=== PATIENT | female | born 1935 | race Caucasian/White ===

== ENCOUNTER → 2017-01-14 | Outpatient (CLI) | payer MEDICARE ==
[~2017-01-14] MED LIST: AMLO2.5T PO; ASPI-496 PO; ATEN50TA41 PO; CALC-55 PO; CHOL-29 PO; IRBE150T25 PO; LEVO25TA4 PO; MULT-257 PO; OMEG-14 PO; RALO60TA PO; VIT1CAPS10 PO; xarelto
== END | disposition home or self-care (01) ==
LOC: CFH 10:51
PROVIDERS: ATTEND Nurse Practitioner Family
DX: J06.9 Acute upper respiratory infection, unspecified (principal); R91.8 Other nonspecific abnormal finding of lung field
CPT/HCPCS: 71020

== ENCOUNTER → 2018-03-05 | Outpatient (CLI) | payer MEDICARE | END | disposition home or self-care (01) | LOC: CFH 12:02 | PROVIDERS: ATTEND Nurse Practitioner Family | DX: M19.031 Primary osteoarthritis, right wrist (principal); M85.841 Other specified disorders of bone density and structure, right hand ==

== ENCOUNTER 2018-05-03 20:17 | Emergency (ER) | payer MEDICARE ==
[~2018-05-03] VITALS: Ht 162.6 cm; Wt 52.0 kg
[~2018-05-03 20:17] MED LIST changes: -AMLO2.5T PO; +AMLO2.5T3 PO
[2018-05-03] MEDS ORDERED: SOTALOL 80MG TABLET PO ONE (21:00)
[2018-05-03 21:06] LABS: BASOPHILS # (AUTO) 0.03 x10^3/uL (0-0.1); BASOPHILS % (AUTO) 0 % (0-1); EOSINOPHILS # (AUTO) 0.08 x10^3/uL (0-0.4); EOSINOPHILS % (AUTO) 1 % (1-7); LYMPHOCYTES # (AUTO) 1.49 x10^3/uL (1-3.4); LYMPHOCYTES % (AUTO) 20 % (22-44); MD NO; MEAN CORPUSCULAR HEMOGLOBIN 31.4 pg (27.0-34.8); MEAN CORPUSCULAR HGB CONC 33.4 g/dL (32.4-35.8); MEAN CORPUSCULAR VOLUME 94.1 fL (80-100); MEAN PLATELET VOLUME 9.4 fL (7.4-10.4); MONOCYTES # (AUTO) 0.58 x10^3/uL (0.2-0.8); MONOCYTES % (AUTO) 8 % (2-9); NEUTROPHILS # (AUTO) 5.25 x10^3/uL (1.8-6.8); NEUTROPHILS % (AUTO) 71 % (42-75); PLATELET COUNT 218 x10^3/uL (130-400); RED BLOOD COUNT 4.52 x10^6/uL (3.82-5.3); RED CELL DISTRIBUTION WIDTH 14.8 % (9.6-15.2)
[2018-05-03 21:18] LABS: ALANINE AMINOTRANSFERASE 84 U/L (12-78); ALBUMIN 3.6 g/dL (3.4-5.0); ANION GAP 7 mmol/L (5-15); CHLORIDE 109 mmol/L (98-107); CREATININE 0.82 mg/dL (0.55-1.02)
[2018-05-03 21:22] LABS: ALKALINE PHOSPHATASE 113 U/L (45-117); BILIRUBIN,TOTAL 0.4 mg/dL (0.2-1.0); TOTAL PROTEIN 7.4 g/dL (6.4-8.2); TROPONIN I 0.025 ng/mL (0.000-0.045)
[2018-05-03 22:17] VITALS: BP 154/70
== END 2018-05-03 22:44 | disposition home or self-care (01) ==
LOC: ED 22:06
DX: I48.0 Paroxysmal atrial fibrillation (principal); I10 Essential (primary) hypertension
CPT/HCPCS: 36415; 71045; 80053; 83880; 84484; 85025; 93005; 99285

== ENCOUNTER → 2018-11-22 | Outpatient (CLI) | payer MEDICARE ==
[~2018-11-22] MED LIST changes: -AMLO2.5T3 PO; +AMLO2.5T5 PO; +OCUVITE SOFTGE1 EACH PO; +REGADENOSON 0.4 MG/5 ML SYRINGE ONE; -VIT1CAPS10 PO
== END | disposition home or self-care (01) ==
LOC: CFH 11:55
PROVIDERS: ATTEND Internal Medicine Cardiovascular Disease
DX: I08.8 Other rheumatic multiple valve diseases (principal); I48.91 Unspecified atrial fibrillation
CPT/HCPCS: 78452; 93017; 93306; A9502; J2785

== ENCOUNTER 2019-08-05 08:08 | Outpatient (CLI) | payer MEDICARE ==
[~2019-08-05 08:08] MED LIST changes: +DILT120C64 PO; +DILT240C61 PO; +HYDR-3341 PO; -IRBE150T25 PO; +IRBE150T9 PO; -REGADENOSON 0.4 MG/5 ML SYRINGE ONE; +SOTA120T26 PO; +TELM20TA PO
== END 2019-08-05 23:59 | disposition home or self-care (01) ==
LOC: CFH 08:08
PROVIDERS: ATTEND Internal Medicine Cardiovascular Disease
DX: Z13.6 Encounter for screening for cardiovascular disorders (principal); E78.00 Pure hypercholesterolemia, unspecified; J90 Pleural effusion, not elsewhere classified; J98.11 Atelectasis
CPT/HCPCS: 75571

== ENCOUNTER 2019-09-02 10:05 | Outpatient (CLI) | payer MEDICARE ==
[~2019-09-02 10:05] MED LIST changes: +ALPR0.5T PO
[2019-09-02] MEDS ORDERED: RIVA20TA PO (14:10)
[2019-09-02] MEDS ORDERED: HYDR-3341 PO (14:10)
[2019-09-02] MEDS ORDERED: LEVO25TA4 PO (14:10)
[2019-09-02] MEDS ORDERED: DILT240C81 PO (14:10)
[2019-09-02] MEDS ORDERED: MULT-717 PO (14:10)
[2019-09-02] MEDS ORDERED: DILT30TA33 PO (14:13)
[2019-09-02] MEDS ORDERED: DENO60DI INJ (14:13)
[2019-09-02] MEDS ORDERED: FURO20TA3 PO (14:13)
[2019-09-02] MEDS ORDERED: Vitamin D3 PO (14:17)
== END 2019-09-02 23:59 | disposition home or self-care (01) ==
LOC: STAR 10:05
PROVIDERS: ATTEND Internal Medicine Geriatric Medicine
DX: Z02.9 Encounter for administrative examinations, unspecified (principal)

== ENCOUNTER 2019-09-13 07:56 | Day surgery (SDC) | payer MEDICARE ==
[~2019-09-13] VITALS: Ht 162.6 cm; Wt 48.2 kg
[~2019-09-13 07:56] MED LIST changes: +DENO60DI INJ; +DILT240C81 PO; +DILT30TA33 PO; +FURO20TA3 PO; +MULT-717 PO; +RIVA20TA PO; +Vitamin D3 PO
[2019-09-13 08:23] VITALS: BP 170/96
[2019-09-13] MEDS ORDERED: LACTATED RINGERS 1,000 ML IV STA (08:43)
[2019-09-13] MEDS ORDERED: LACTATED RINGERS 1,000 ML IV SCH (09:00)
[2019-09-13] MEDS ORDERED: PROPOFOL 10 MG/ML, 20ML ONE (10:05)
[2019-11-15] MEDS ORDERED: RALO60TA PO (09:11)
[2019-11-15] MEDS ORDERED: METO25TA91 PO (09:11)
[2019-11-15] MEDS ORDERED: POTA20TA6 PO (09:11)
[2019-11-15] MEDS ORDERED: AMIO200T42 PO ×2 (09:11→12:32)
[2019-11-15] MEDS ORDERED: FURO20TA3 PO (09:24)
== END 2019-09-13 12:15 | disposition home or self-care (01) ==
LOC: OUT 07:56
PROVIDERS: ATTEND Internal Medicine Geriatric Medicine
DX: K85.90 Acute pancreatitis without necrosis or infection, unspecified (principal); I48.91 Unspecified atrial fibrillation; I11.0 Hypertensive heart disease with heart failure; I50.32 Chronic diastolic (congestive) heart failure; D68.69 Other thrombophilia; E89.0 Postprocedural hypothyroidism; F41.9 Anxiety disorder, unspecified; Z79.01 Long term (current) use of anticoagulants; Z79.890 Hormone replacement therapy; Z79.899 Other long term (current) drug therapy; Z88.8 Allergy status to other drugs, medicaments and biological substances; Z91.018 Allergy to other foods; Z90.49 Acquired absence of other specified parts of digestive tract; Z98.890 Other specified postprocedural states; Z80.1 Family history of malignant neoplasm of trachea, bronchus and lung; Z82.49 Family history of ischemic heart disease and other diseases of the circulatory system
CPT/HCPCS: 43259; J2704; J7120

== ENCOUNTER 2019-09-15 12:24 | Outpatient (CLI) | payer MEDICARE ==
[2019-09-15] MEDS ORDERED: LIDOCAINE 1%, 10ML ONE (13:40)
== END 2019-09-15 23:59 | disposition home or self-care (01) ==
LOC: RAD 12:24
PROVIDERS: ATTEND Nurse Practitioner Family
DX: J90 Pleural effusion, not elsewhere classified (principal)
CPT/HCPCS: 32555; 74176

== ENCOUNTER 2019-09-27 05:26 | Day surgery (SDC) | payer MEDICARE ==
[~2019-09-27] VITALS: Ht 162.6 cm; Wt 48.0 kg
[2019-09-27] MEDS ORDERED: LACTATED RINGERS 1,000 ML IV SCH (06:05)
[2019-09-27 06:24] VITALS: BP 167/90
[2019-09-27] MEDS ORDERED: MIDAZOLAM 1 MG/ML, 2ML ONE (08:02)
[2019-09-27] MEDS ORDERED: FENTANYL PF 250 MCG/5ML ONE (08:02)
[2019-09-27] MEDS ORDERED: ONDANSETRON 2MG/ML, 2ML ONE (09:02)
[2019-09-27] MEDS ORDERED: PROPOFOL 10 MG/ML, 20ML ONE (09:02)
[2019-09-27] MEDS ORDERED: SUCCINYLCHOLINE 20 MG/ML, 10ML ONE (09:02)
[2019-09-27] MEDS ORDERED: AMPICILLIN/SULBACTAM 3 GM in SODIUM CHLORIDE 0.9% 100 ML IV ONE (10:00)
[2019-09-27] MEDS ORDERED: ONDANSETRON 2MG/ML, 2ML IVPush PRN (10:30)
[2019-09-27] MEDS ORDERED: hydrALAzine 20 MG/ML, 1ML IV PRN (10:30)
[2019-09-27] MEDS ORDERED: LABETALOL 5MG/ML, 20ML IV PRN (10:30)
[2019-09-27] MEDS ORDERED: METOCLOPRAMIDE 5 MG/ML, 2ML IV PRN (10:30)
[2019-09-27] MEDS ORDERED: ALBUTEROL SULFATE 2.5 MG/3 ML NPPB PRN (10:30)
[2019-09-27] MEDS ORDERED: DIAZEPAM 5 MG/ML, 2ML IV PRN ×2 (10:30)
[2019-09-27] MEDS ORDERED: HYDROmorphone 1 MG/ML, 1ML INJ IV PRN (10:30)
[2019-09-27] MEDS ORDERED: KETOROLAC 30 MG/1 ML IV PRN (10:30)
[2019-09-27] MEDS ORDERED: OXYcodone 5 MG/5 ML ORAL.SOL UDC PO PRN (10:30)
[2019-09-27] MEDS ORDERED: PROMETHAZINE 25 MG/ML, 1ML IV PRN (10:30)
[2019-09-27] MEDS ORDERED: FENTANYL PF 100 MCG/2ML IV PRN (10:30)
[2019-09-27] MEDS ORDERED: MEPERIDINE/PF 25MG/0.5ML IVPush PRN (10:30)
[2019-11-15] MEDS ORDERED: METO25TA91 PO (09:11)
[2019-11-15] MEDS ORDERED: AMIO200T42 PO ×2 (09:11→12:32)
[2019-11-15] MEDS ORDERED: RALO60TA PO (09:11)
[2019-11-15] MEDS ORDERED: POTA20TA6 PO (09:11)
[2019-11-15] MEDS ORDERED: FURO20TA3 PO (09:24)
== END 2019-09-27 11:35 | disposition home or self-care (01) ==
LOC: OUT 05:26
PROVIDERS: ATTEND Internal Medicine Geriatric Medicine
DX: K85.90 Acute pancreatitis without necrosis or infection, unspecified (principal); K86.89 Other specified diseases of pancreas; I48.0 Paroxysmal atrial fibrillation; I11.0 Hypertensive heart disease with heart failure; I50.33 Acute on chronic diastolic (congestive) heart failure; I34.1 Nonrheumatic mitral (valve) prolapse; E78.00 Pure hypercholesterolemia, unspecified; E03.9 Hypothyroidism, unspecified; M19.90 Unspecified osteoarthritis, unspecified site; E55.9 Vitamin D deficiency, unspecified; Z79.01 Long term (current) use of anticoagulants; Z79.890 Hormone replacement therapy; Z79.899 Other long term (current) drug therapy
CPT/HCPCS: 43242; 88172; 88173; 88177; 88307; J0330; J2405; J2704; J7120; J2250; J3010

== ENCOUNTER 2019-09-29 14:16 | Emergency (ER) | payer MEDICARE ==
[~2019-09-29] VITALS: Ht 162.6 cm; Wt 48.8 kg
--- NOTE | 2019-09-29 15:11 | NUR ---
FALSEWORK BUILDER: PT TO ROOM FROM LOBBY.
--- NOTE | 2019-09-29 15:16 | NUR ---
PT CAME IN CO OF ABD PAIN. SAYS "I HAD AN ENDOSCOPY ON THURSDAY AND EVER SINCE MY ABD HAS BEEN HURTING. TODAY HAS BEEN THE WORSE. ITS A SHARP PAIN. I CALLED THE GI DOC AND HE TOLD ME TO COME." PT DENIES BLACK STOOL. DENIES VOMITTING. PT TAKES XARELTO FOR AFIB. AOX4. IS BEDSIDE
[2019-09-29] MEDS ORDERED: SODIUM CHLORIDE 0.9% 1,000 ML IV ONE (15:32)
[2019-09-29] MEDS ORDERED: SODIUM CHLORIDE FLUSH 10ML SYR IVF ONE (16:00)
[2019-09-29 16:05] LABS: ANION GAP 8 mmol/L (5-15); CHLORIDE 105 mmol/L (98-107); CREATININE 0.86 mg/dL (0.55-1.02)
[2019-09-29 16:06] LABS: ALANINE AMINOTRANSFERASE 27 U/L (12-78); ALBUMIN 3.6 g/dL (3.4-5.0)
--- NOTE | 2019-09-29 16:06 | NUR ---
PT RESTING IN [facility]. IV FLUIDS INFUSING. CONNECTED TO KITCHEN CLEANER. NO NEEDS AT THIS TIME
[2019-09-29 16:08] LABS: ALKALINE PHOSPHATASE 70 U/L (45-117); BILIRUBIN,TOTAL 0.4 mg/dL (0.2-1.0); TOTAL PROTEIN 7.7 g/dL (6.4-8.2)
[2019-09-29 16:40] LABS: BASOPHILS % (AUTO) 0 % (0-1); EOSINOPHILS # (AUTO) 0.13 x10^3/uL (0-0.4); EOSINOPHILS % (AUTO) 1 % (1-7); LYMPHOCYTES # (AUTO) 1.21 x10^3/uL (1-3.4); LYMPHOCYTES % (AUTO) 12 % (22-44); MD NO; MEAN CORPUSCULAR HEMOGLOBIN 31.6 pg (27.0-34.8); MEAN CORPUSCULAR HGB CONC 33.1 g/dL (32.4-35.8); MEAN CORPUSCULAR VOLUME 95.4 fL (80-100); MEAN PLATELET VOLUME 8.9 fL (7.4-10.4); MONOCYTES # (AUTO) 0.98 x10^3/uL (0.2-0.8); MONOCYTES % (AUTO) 9 % (2-9); NEUTROPHILS # (AUTO) 8.13 x10^3/uL (1.8-6.8); NEUTROPHILS % (AUTO) 78 % (42-75); PLATELET COUNT 238 x10^3/uL (130-400); RED BLOOD COUNT 4.16 x10^6/uL (3.82-5.3); RED CELL DISTRIBUTION WIDTH 14.5 % (9.6-15.2)
[2019-09-29] MEDS ORDERED: OMNIPAQUE 350 MG/ML, 100ML BOTTLE ONE (16:49)
--- NOTE | 2019-09-29 16:49 | NUR ---
BREAK RN: PT BACK FROM CT. REPORT GIVEN TO FUNMI POZO
[2019-09-29 17:33] VITALS: BP 133/80
--- NOTE | 2019-09-29 17:34 | NUR ---
PT RESTING IN [facility]. NAD. VSS. BLANKET PROVIDED.
== END 2019-09-29 18:32 | disposition home or self-care (01) ==
LOC: ED 15:16
DX: K85.90 Acute pancreatitis without necrosis or infection, unspecified (principal); R10.13 Epigastric pain; I11.0 Hypertensive heart disease with heart failure; I50.9 Heart failure, unspecified; I48.91 Unspecified atrial fibrillation; R94.31 Abnormal electrocardiogram [ECG] [EKG]
CPT/HCPCS: 36415; 71045; 74177; 80053; 83690; 85025; 93005; 99285; J7030; Q9967

== ENCOUNTER 2019-11-30 07:49 | Inpatient (IN) | payer MEDICARE ==
[~2019-11-30] VITALS: Ht 162.6 cm; Wt 45.8 kg
[~2019-11-30 07:49] MED LIST changes: +AMIO200T42 PO; +METO25TA91 PO; +POTA20TA6 PO
[2019-11-30] MEDS ORDERED: AMIO200T42 PO (08:06)
--- NOTE | 2019-11-30 08:28 | NUR ---
Note undone in EDM - 11/30/19 at 0833 by BETSY Pt BIB [facility] for SOB and chest tightness. Pt is slightly diaphoretic, changed into gown, call light on lap, P/W/D, partial sentences with breaths in between. Placed on monitor, On 2L NC. Pt resting in [facility], denies additional needs at this time. WCTM. Waiting for provider EVAL and POC.
--- NOTE | 2019-11-30 08:33 | NUR ---
Pt BIB [facility] for SOB and chest tightness. Pt is slightly diaphoretic W/D, changed into gown, call light on lap, partial sentences with breaths in between. Placed on monitor, On 2L NC. Pt resting in gurney, denies additional needs at this time. WCTM. Waiting for provider EVAL and POC.
--- NOTE | 2019-11-30 08:53 | NUR ---
PT RESTING IN [facility], STATES PAIN IS AN 8 BUT DECLINED ANY PAIN MEDICATION AT THIS TIME, PT STATES THAT SHE "THINKS ITS JUST MY BREATHING." LAB AT BS, PT RESPIRATIONS ARE LESS LABORED AND PT APPEARS MORE RELAXED. NAD, SLIGHT DIAPHORESIS NOTED ON FACE, BODY IS WARM AND DRY. WCTM. WAITING FOR LABS
[2019-11-30] MEDS ORDERED: MORPHINE SULFATE 4 MG/ML, 1ML IVPush PRN (09:00)
[2019-11-30] MEDS ORDERED: SODIUM CHLORIDE FLUSH 10ML SYR IVF ONE (09:00)
[2019-11-30 09:19] LABS: MEAN CORPUSCULAR HEMOGLOBIN 30.4 pg (27.0-34.8); MEAN CORPUSCULAR HGB CONC 32.4 g/dL (32.4-35.8); MEAN CORPUSCULAR VOLUME 93.9 fL (80-100); RED CELL DISTRIBUTION WIDTH 15.9 % (9.6-15.2)
[2019-11-30] MEDS ORDERED: AZITHROMYCIN 500 MG in SODIUM CHLORIDE 0.9% 250 ML IV ONE (09:34)
[2019-11-30 09:42] LABS: MD YES
[2019-11-30] MEDS ORDERED: CEFTRIAXONE PMX 1GM/50ML 50 ML ONE (09:45)
[2019-11-30 09:46] LABS: LYMPH#(MANUAL) 0.98 x10^3/uL (1-3.4); LYMPHS% (MANUAL) 8 % (22-44); MONOS% (MANUAL) 13 % (2-9); SEG#(MANUAL) 9.72 x10^3/uL (1.8-6.8); SEGS% (MANUAL) 79 % (42-75)
[2019-11-30 09:51] LABS: <PLATELET ESTIMATE> ADEQUATE; GIANT PLATELETS 1+; LARGE PLATELETS 1+
--- NOTE | 2019-11-30 09:52 | NUR ---
PT RESTING IN [place], MEDICATED PER SEP, NAD, SLIGHT DIAPHORESIS NOTED STILL, NO CHANGE IN CONDITION. WCTM. WAITING FOR ADMIT BED.
[2019-11-30 09:53] LABS: ANISOCYTOSIS 1+; TARGET CELLS 1+
[2019-11-30 09:54] LABS: MEAN PLATELET VOLUME 9.5 fL (7.4-10.4); PLATELET COUNT 414 x10^3/uL (130-400); POLYCHROMASIA 1+; SCHISTOCYTES 1+
[2019-11-30 10:31] LABS: ALANINE AMINOTRANSFERASE 20 U/L (12-78); ALBUMIN 2.8 g/dL (3.4-5.0); ANION GAP 6 mmol/L (5-15); CALCIUM 8.4 mg/dL (8.5-10.1); CHLORIDE 107 mmol/L (98-107); CREATININE 1.07 mg/dL (0.55-1.02)
[2019-11-30 10:43] LABS: ALKALINE PHOSPHATASE 73 U/L (45-117); BILIRUBIN,TOTAL 0.7 mg/dL (0.2-1.0); TOTAL PROTEIN 6.4 g/dL (6.4-8.2); TROPONIN I 0.022 ng/mL (0.000-0.045)
[2019-11-30] MEDS ORDERED: DOXYCYCLINE 100 MG in DEXTROSE 5% 250 ML IV SCH (11:00)
[2019-11-30] MEDS ORDERED: CEFTRIAXONE PMX 1GM/50ML 50 ML IVPB ONE (11:00)
[2019-11-30] MEDS ORDERED: ONDANSETRON 2MG/ML, 2ML IVPush PRN (11:00)
[2019-11-30] MEDS ORDERED: CEFTRIAXONE PMX 1GM/50ML 50 ML IV SCH (11:00)
[2019-11-30] MEDS ORDERED: ACETAMINOPHEN 325 MG TABLET PO PRN (11:00)
--- NOTE | 2019-11-30 11:00 | NUR ---
pt resting in gurney, NAD, VSS, lunch tray ordered, pt given PO water for comfort. WCTM waiting for admit bed.
[2019-11-30 11:54] LABS: TROPONIN I 0.038 ng/mL (0.000-0.045)
[2019-11-30] MEDS ORDERED: MORPHINE SULFATE 4 MG/ML, 1ML ONE (11:54)
--- NOTE | 2019-11-30 12:18 | NUR ---
pt given warm blanket, medicated per MAR for pain, NAD, VSS, P/W/skin diaphoretic. call light on lap, waiting on admit bed, [facility].
--- NOTE | 2019-11-30 13:01 | NUR ---
Pt resting in [place], no change in condition at this time, belongings placed in labelled belongings, given meal tray for comfort, WCTM. waiting for admit bed.
--- NOTE | 2019-11-30 14:20 | NUR ---
Pt resting in [facility], no change in condition at this time, WCTM. waiting for admit bed.
--- NOTE | 2019-11-30 14:50 | NUR ---
TASK RN: PT RESTING WITH EYES CLOSED. ANTIBIOTICS INFUSING.
--- NOTE | 2019-11-30 14:58 | NUR ---
REPORT TO JENN CHOUDHARY. PT TO BE TRANSPORTED TO THE FLOOR.
[2019-11-30 15:31] VITALS: BP 140/71
[2019-11-30 17:11] LABS: TROPONIN I 0.033 ng/mL (0.000-0.045)
[2019-11-30 18:19] VITALS: BP 135/70
[2019-11-30] MEDS: FUROSEMIDE 40 MG/4 ML IV SCH (18:22)
[2019-11-30] MEDS: DOXYCYCLINE 100MG TABLET PO SCH (21:18)
[2019-11-30 21:23] VITALS: BP 132/72
[2019-11-30 22:50] LABS: TROPONIN I 0.039 ng/mL (0.000-0.045)
[2019-12-01 00:53] VITALS: BP 157/73
[2019-12-01 00:54] VITALS: BP 157/73
[2019-12-01 05:00] LABS: MEAN CORPUSCULAR HEMOGLOBIN 30.6 pg (27.0-34.8); MEAN CORPUSCULAR HGB CONC 32.4 g/dL (32.4-35.8); MEAN CORPUSCULAR VOLUME 94.5 fL (80-100); RED BLOOD COUNT 3.04 x10^6/uL (3.82-5.3); RED CELL DISTRIBUTION WIDTH 15.8 % (9.6-15.2)
[2019-12-01 05:09] LABS: ALANINE AMINOTRANSFERASE 20 U/L (12-78); ALBUMIN 2.8 g/dL (3.4-5.0); ANION GAP 6 mmol/L (5-15); CALCIUM 7.8 mg/dL (8.5-10.1); CHLORIDE 105 mmol/L (98-107)
[2019-12-01 05:11] LABS: ALKALINE PHOSPHATASE 77 U/L (45-117); BILIRUBIN,TOTAL 0.7 mg/dL (0.2-1.0); TOTAL PROTEIN 6.3 g/dL (6.4-8.2)
[2019-12-01 05:35] LABS: MEAN PLATELET VOLUME 9.9 fL (7.4-10.4); PLATELET COUNT 435 x10^3/uL (130-400)
[2019-12-01 05:36] LABS: MD YES
[2019-12-01 05:38] LABS: ANISOCYTOSIS 1+; EOS#(MANUAL) 0.27 x10^3/uL (0.0-0.4); EOS% (MANUAL) 2 % (1-7); LYMPH#(MANUAL) 1.88 x10^3/uL (1-3.4); LYMPHS% (MANUAL) 14 % (22-44); MONOS% (MANUAL) 3 % (2-9); POLYCHROMASIA 1+; SEG#(MANUAL) 10.85 x10^3/uL (1.8-6.8); SEGS% (MANUAL) 81 % (42-75)
[2019-12-01 05:41] LABS: <PLATELET ESTIMATE> INCREASED; TARGET CELLS 1+
[2019-12-01 05:42] LABS: LARGE PLATELETS 1+
[2019-12-01 06:36] VITALS: BP 158/77
[2019-12-01] MEDS: AMIODARONE 200 MG TABLET PO SCH (08:34)
[2019-12-01] MEDS: DOXYCYCLINE 100MG TABLET PO SCH (08:34)
[2019-12-01] MEDS: RALOXIFENE 60 MG TABLET PO SCH (08:34)
[2019-12-01] MEDS: FUROSEMIDE 40 MG/4 ML IV SCH ×2 (08:34→16:16)
[2019-12-01] MEDS: POTASSIUM CHLORIDE 10 MEQ TABLET.ER PO SCH (08:34)
[2019-12-01] MEDS: METOPROLOL SUCCINATE 25 MG TAB.ER.24H PO SCH (08:35)
[2019-12-01] MEDS: DILTIAZEM 240 MG CAP.ER.24H PO SCH (08:35)
[2019-12-01] MEDS ORDERED: DILTIAZEM 240 MG CAP.ER.24H PO SCH (09:00)
[2019-12-01] MEDS ORDERED: HEPARIN 25,000 UNITS/250ML PMX 250 ML IV PRN ×2 (10:30→12:30)
[2019-12-01] MEDS ORDERED: HEPARIN 5,000 UNITS/ML, 1ML IV PRN ×2 (10:30→12:30)
[2019-12-01] MEDS ORDERED: HEPARIN 5,000 UNITS/ML, 1ML IV ONE ×2 (10:30→12:30)
[2019-12-01 12:13] VITALS: BP 126/69
[2019-12-01] MEDS: ASPIRIN 81 MG TABLET EC PO SCH (12:17)
[2019-12-01] MEDS: LEVOFLOXACIN/PMX 750MG/150ML 150 ML IV SCH (12:18)
[2019-12-01 18:53] VITALS: BP 114/77
[2019-12-02 00:55] VITALS: BP 131/65
[2019-12-02 02:12] LABS: MEAN CORPUSCULAR HEMOGLOBIN 30.4 pg (27.0-34.8); MEAN CORPUSCULAR HGB CONC 31.8 g/dL (32.4-35.8); MEAN CORPUSCULAR VOLUME 95.7 fL (80-100); MEAN PLATELET VOLUME 9.5 fL (7.4-10.4); PLATELET COUNT 421 x10^3/uL (130-400); RED BLOOD COUNT 3.03 x10^6/uL (3.82-5.3)
[2019-12-02 02:39] LABS: MD YES
[2019-12-02 02:44] LABS: ANISOCYTOSIS 1+; BASOS#(MANUAL) 0.12 x10^3/uL (0-0.1); BASOS% (MANUAL) 1 % (0-1); EOS#(MANUAL) 0.35 x10^3/uL (0.0-0.4); EOS% (MANUAL) 3 % (1-7); LYMPH#(MANUAL) 1.52 x10^3/uL (1-3.4); LYMPHS% (MANUAL) 13 % (22-44); MONOS#(MANUAL) 0.94 x10^3/uL (0.3-2.7); MONOS% (MANUAL) 8 % (2-9); MYELOCYTES# (MANUAL) 0.12 x10^3/uL (0-0); MYELOCYTES% (MANUAL) 1 % (0-0); POLYCHROMASIA 1+; REACTIVE LYMPHS # (MANUAL) 0.12 x10^3/uL (0-0); REACTIVE LYMPHS % (MANUAL) 1 % (0-0); SEG#(MANUAL) 8.54 x10^3/uL (1.8-6.8); SEGS% (MANUAL) 73 % (42-75); TARGET CELLS 1+
[2019-12-02 02:45] LABS: <PLATELET ESTIMATE> INCREASED; LARGE PLATELETS 1+
[2019-12-02] MEDS: LEVOTHYROXINE 25 MCG TABLET PO SCH (05:20)
[2019-12-02] MEDS: ASPIRIN 81 MG TABLET EC PO SCH (05:20)
[2019-12-02 06:46] VITALS: BP 135/71
[2019-12-02] MEDS: POTASSIUM CHLORIDE 10 MEQ TABLET.ER PO SCH (08:23)
[2019-12-02] MEDS: RALOXIFENE 60 MG TABLET PO SCH (08:24)
[2019-12-02] MEDS: DILTIAZEM 240 MG CAP.ER.24H PO SCH (08:24)
[2019-12-02] MEDS: FUROSEMIDE 40 MG/4 ML IV SCH (08:24)
[2019-12-02] MEDS: AMIODARONE 200 MG TABLET PO SCH (08:24)
[2019-12-02] MEDS: METOPROLOL SUCCINATE 25 MG TAB.ER.24H PO SCH (08:24)
[2019-12-02] MEDS ORDERED: RIVAROXABAN 15 MG TABLET PO SCH (09:30)
[2019-12-02] MEDS: RIVAROXABAN 15 MG TABLET PO SCH (09:54)
[2019-12-02 13:38] VITALS: BP 94/58
[2019-12-02] MEDS ORDERED: FUROSEMIDE 40 MG/4 ML IV SCH (17:00)
[2019-12-02 18:25] VITALS: BP 111/62
[2019-12-03] VITALS (9 sets, daily range): BP systolic 72–122; BP diastolic 42–78
[2019-12-03] MEDS: ASPIRIN 81 MG TABLET EC PO SCH (05:13)
[2019-12-03] MEDS: LEVOTHYROXINE 25 MCG TABLET PO SCH (05:13)
[2019-12-03] MEDS ORDERED: FUROSEMIDE 40 MG TABLET PO SCH (07:30)
[2019-12-03] MEDS ORDERED: FURO-92 PO (07:33)
[2019-12-03] MEDS ORDERED: LEVO750T26 PO (07:33)
[2019-12-03] MEDS: AMIODARONE 200 MG TABLET PO SCH (08:40)
[2019-12-03] MEDS: METOPROLOL SUCCINATE 25 MG TAB.ER.24H PO SCH (08:40)
[2019-12-03] MEDS: POTASSIUM CHLORIDE 10 MEQ TABLET.ER PO SCH (08:40)
[2019-12-03] MEDS: DILTIAZEM 240 MG CAP.ER.24H PO SCH (08:41)
[2019-12-03] MEDS: RIVAROXABAN 15 MG TABLET PO SCH (08:41)
[2019-12-03] MEDS: RALOXIFENE 60 MG TABLET PO SCH (08:41)
[2019-12-03] MEDS: LEVOFLOXACIN/PMX 750MG/150ML 150 ML IV SCH (10:28)
[2019-12-03] MEDS ORDERED: SODIUM CHLORIDE 0.9%, 250ML IVBOLUS ONE (14:30)
[2019-12-04 01:40] VITALS: BP_SYST 107; BP_SYST 80; BP_SYST 93; BP_DIAS 44; BP_DIAS 49; BP_DIAS 56
[2019-12-04] MEDS: ASPIRIN 81 MG TABLET EC PO SCH (05:07)
[2019-12-04] MEDS: LEVOTHYROXINE 25 MCG TABLET PO SCH (05:07)
[2019-12-04 06:02] LABS: ANION GAP 11 mmol/L (5-15); CALCIUM 7.6 mg/dL (8.5-10.1); CHLORIDE 100 mmol/L (98-107)
[2019-12-04 06:20] VITALS: BP 111/66
[2019-12-04] MEDS ORDERED: POTASSIUM CHLORIDE 40 MEQ in SODIUM CHLORIDE 0.9% 500 ML IV ONE (06:30)
[2019-12-04] MEDS ORDERED: POTASSIUM CHLORIDE 20 MEQ TAB.ER.PRT PO ONE (06:30)
[2019-12-04] MEDS: AMIODARONE 200 MG TABLET PO SCH (07:45)
[2019-12-04] MEDS: POTASSIUM CHLORIDE 10 MEQ TABLET.ER PO SCH (07:45)
[2019-12-04] MEDS: SODIUM CHLORIDE 0.9% 1,000 ML IV SCH (07:45)
[2019-12-04] MEDS: RALOXIFENE 60 MG TABLET PO SCH (07:45)
[2019-12-04] MEDS: LEVOFLOXACIN 750 MG TABLET PO SCH (07:45)
[2019-12-04] MEDS: METOPROLOL SUCCINATE 25 MG TAB.ER.24H PO SCH (07:45)
[2019-12-04] MEDS: RIVAROXABAN 15 MG TABLET PO SCH (07:49)
[2019-12-04] MEDS ORDERED: FUROSEMIDE 40 MG TABLET PO SCH (09:00)
[2019-12-04 12:44] VITALS: BP 107/51
[2019-12-04 18:41] VITALS: BP 121/62
[2019-12-04 18:44] VITALS: BP 118/54
[2019-12-04 18:45] VITALS: BP 127/64
[2019-12-05] MEDS: SODIUM CHLORIDE 0.9% 1,000 ML IV SCH ×2 (00:09→12:26)
[2019-12-05 01:04] VITALS: BP 130/70
[2019-12-05] MEDS: ASPIRIN 81 MG TABLET EC PO SCH (06:05)
[2019-12-05] MEDS: LEVOTHYROXINE 25 MCG TABLET PO SCH (06:05)
[2019-12-05 06:07] LABS: CHLORIDE 108 mmol/L (98-107)
[2019-12-05 06:11] LABS: ANION GAP 7 mmol/L (5-15); CALCIUM 7.6 mg/dL (8.5-10.1)
[2019-12-05 06:40] VITALS: BP 165/90
[2019-12-05] MEDS: AMIODARONE 200 MG TABLET PO SCH (08:26)
[2019-12-05] MEDS: LEVOFLOXACIN 750 MG TABLET PO SCH (08:27)
[2019-12-05] MEDS: RALOXIFENE 60 MG TABLET PO SCH (08:27)
[2019-12-05] MEDS: POTASSIUM CHLORIDE 10 MEQ TABLET.ER PO SCH (08:27)
[2019-12-05] MEDS: METOPROLOL SUCCINATE 25 MG TAB.ER.24H PO SCH (08:27)
[2019-12-05] MEDS: RIVAROXABAN 15 MG TABLET PO SCH (08:29)
[2019-12-05] MEDS ORDERED: DILTIAZEM 120 MG CAP.ER.24H PO SCH (09:00)
[2019-12-05 09:12] VITALS: BP_SYST 106; BP_SYST 113; BP_SYST 119; BP_DIAS 58; BP_DIAS 64; BP_DIAS 68
[2019-12-05 12:06] VITALS: BP 118/72
== END 2019-12-05 13:40 | disposition home health service (06) | DRG 291 ==
LOC: ED 08:21 → EDIP 10:47 → 4WST 15:17 → DCLOUNGE 12-05 13:35
PROVIDERS: ADMIT Internal Medicine; ATTEND Internal Medicine Infectious Disease
DX: I13.0 Hypertensive heart and chronic kidney disease with heart failure and stage 1 through stage 4 chronic kidney disease, or unspecified chronic kidney disease (principal); I50.33 Acute on chronic diastolic (congestive) heart failure; J96.01 Acute respiratory failure with hypoxia; J18.9 Pneumonia, unspecified organism; N17.9 Acute kidney failure, unspecified; I31.3 Pericardial effusion (noninflammatory); I97.630 Postprocedural hematoma of a circulatory system organ or structure following a cardiac catheterization; B35.9 Dermatophytosis, unspecified; D64.9 Anemia, unspecified; E89.0 Postprocedural hypothyroidism; I27.20 Pulmonary hypertension, unspecified; N18.9 Chronic kidney disease, unspecified; I48.91 Unspecified atrial fibrillation; M81.0 Age-related osteoporosis without current pathological fracture; T50.2X5A Adverse effect of carbonic-anhydrase inhibitors, benzothiadiazides and other diuretics, initial encounter; I34.0 Nonrheumatic mitral (valve) insufficiency; I95.1 Orthostatic hypotension; Y84.0 Cardiac catheterization as the cause of abnormal reaction of the patient, or of later complication, without mention of misadventure at the time of the procedure; Z79.01 Long term (current) use of anticoagulants; Z80.1 Family history of malignant neoplasm of trachea, bronchus and lung; Z82.49 Family history of ischemic heart disease and other diseases of the circulatory system; Z85.07 Personal history of malignant neoplasm of pancreas; Z95.2 Presence of prosthetic heart valve; Y92.89 Other specified places as the place of occurrence of the external cause; Z90.89 Acquired absence of other organs; Z90.49 Acquired absence of other specified parts of digestive tract; Z90.411 Acquired partial absence of pancreas; Z88.8 Allergy status to other drugs, medicaments and biological substances; Z88.1 Allergy status to other antibiotic agents; R55 Syncope and collapse; T50.1X5A Adverse effect of loop [high-ceiling] diuretics, initial encounter; Y92.098 Other place in other non-institutional residence as the place of occurrence of the external cause
CPT/HCPCS: 36415; 71045; 80048; 80053; 82962; 83605; 83880; 84145; 84484; 85025; 85520; 87040; 93005; 93970; 96365; 96367; 96368; 96375; 99285; G0378; J0456; J0696; J1644; J1940; J1956; J3480; J7060; J2270; J7030; J7040; J7050

== ENCOUNTER 2019-12-20 09:52 | Inpatient (IN) | payer MEDICARE ==
[~2019-12-20] VITALS: Ht 162.6 cm; Wt 86.8 kg
[~2019-12-20 09:52] MED LIST changes: +FURO-92 PO; +LEVO750T26 PO
[2019-12-20 10:23] VITALS: BP 151/67
[2019-12-20] MEDS ORDERED: ONDANSETRON 2MG/ML, 2ML IV PRN ×2 (10:30→16:00)
[2019-12-20] MEDS ORDERED: SODIUM CHLORIDE 0.9% 1,000ML IV SCH (10:30)
[2019-12-20] MEDS ORDERED: PLEASE ENTER HEIGHT AND WEIGHT MC SCH (10:30)
[2019-12-20] MEDS ORDERED: RIVA20TA PO (11:00)
[2019-12-20 11:02] LABS: MEAN CORPUSCULAR HEMOGLOBIN 32.8 pg (27.0-34.8); MEAN CORPUSCULAR HGB CONC 32.7 g/dL (32.4-35.8); MEAN CORPUSCULAR VOLUME 100.3 fL (80-100); MEAN PLATELET VOLUME 8.9 fL (7.4-10.4); PLATELET COUNT 398 x10^3/uL (130-400); RED BLOOD COUNT 3.63 x10^6/uL (3.82-5.3); RED CELL DISTRIBUTION WIDTH 23.2 % (9.6-15.2)
[2019-12-20 11:09] LABS: ANION GAP 5 mmol/L (5-15); CALCIUM 9.6 mg/dL (8.5-10.1); CHLORIDE 103 mmol/L (98-107); CREATININE 1.46 mg/dL (0.55-1.02)
[2019-12-20 11:14] LABS: INTERNATIONAL NORMALIZED RATIO 0.97 (0.93-1.1); PROTHROMBIN TIME 10.3 Seconds (9.6-11.5)
[2019-12-20 11:33] LABS: MD YES
[2019-12-20 11:36] LABS: EOS#(MANUAL) 0.08 x10^3/uL (0.0-0.4); EOS% (MANUAL) 1 % (1-7); LYMPH#(MANUAL) 2.05 x10^3/uL (1-3.4); LYMPHS% (MANUAL) 26 % (22-44); MONOS#(MANUAL) 0.79 x10^3/uL (0.3-2.7); MONOS% (MANUAL) 10 % (2-9); SEG#(MANUAL) 4.98 x10^3/uL (1.8-6.8); SEGS% (MANUAL) 63 % (42-75)
[2019-12-20 11:38] LABS: <PLATELET ESTIMATE> ADEQUATE; <PLT MORPHOLOGY> NORMAL PLT MORPH; ANISOCYTOSIS 1+; TARGET CELLS 1+
[2019-12-20] MEDS ORDERED: LIDOCAINE 1%, 20ML ONE (13:49)
[2019-12-20] MEDS ORDERED: ROCURONIUM 10 MG/ML,10ML ONE (14:01)
[2019-12-20] MEDS ORDERED: SUCCINYLCHOLINE 20 MG/ML, 10ML ONE (14:01)
[2019-12-20] MEDS ORDERED: PROPOFOL 10 MG/ML, 20ML ONE (14:01)
[2019-12-20] MEDS ORDERED: CEFAZOLIN 1,000 MG ONE (14:01)
[2019-12-20] MEDS ORDERED: FENTANYL PF 250 MCG/5ML ONE (14:17)
[2019-12-20] MEDS: SODIUM CHLORIDE 0.9% 1,000 ML IV SCH (15:35)
[2019-12-20] MEDS ORDERED: ACETAMINOPHEN 325 MG TABLET PO PRN (16:00)
[2019-12-20] MEDS ORDERED: LABETALOL 5MG/ML, 20ML IVPush PRN (16:00)
[2019-12-20] MEDS ORDERED: MAALOX/HYOSCYAMINE/LIDOCAINE 45 ML BTL PO PRN (16:00)
[2019-12-20] MEDS ORDERED: hydrALAzine 20 MG/ML, 1ML IVPush PRN (16:00)
[2019-12-20] MEDS ORDERED: HYDROcodone/APAP 5/325 TABLET PO PRN (16:00)
[2019-12-20] MEDS: RIVAROXABAN 15 MG TABLET PO SCH ×2 (18:16→20:24)
[2019-12-20 20:44] VITALS: BP 147/72
[2019-12-21 00:35] VITALS: BP 115/64
[2019-12-21] MEDS: SODIUM CHLORIDE 0.9% 1,000 ML IV SCH ×2 (01:35→10:32)
[2019-12-21 05:43] LABS: ANION GAP 7 mmol/L (5-15); CALCIUM 8.5 mg/dL (8.5-10.1); CHLORIDE 104 mmol/L (98-107)
[2019-12-21 05:44] LABS: CREATININE 1.17 mg/dL (0.55-1.02); MEAN CORPUSCULAR HEMOGLOBIN 32.4 pg (27.0-34.8); MEAN CORPUSCULAR HGB CONC 32.6 g/dL (32.4-35.8); MEAN CORPUSCULAR VOLUME 99.4 fL (80-100); MEAN PLATELET VOLUME 9.6 fL (7.4-10.4); PLATELET COUNT 333 x10^3/uL (130-400); RED CELL DISTRIBUTION WIDTH 23.6 % (9.6-15.2)
[2019-12-21 06:06] LABS: MD YES
[2019-12-21 06:11] LABS: ANISOCYTOSIS 1+; LYMPH#(MANUAL) 2.13 x10^3/uL (1-3.4); LYMPHS% (MANUAL) 19 % (22-44); MONOS#(MANUAL) 0.67 x10^3/uL (0.3-2.7); MONOS% (MANUAL) 6 % (2-9); SEGS% (MANUAL) 75 % (42-75); TARGET CELLS 1+
[2019-12-21 06:12] LABS: <PLATELET ESTIMATE> ADEQUATE; <PLT MORPHOLOGY> NORMAL PLT MORPH
[2019-12-21] MEDS ORDERED: LEVOTHYROXINE 25 MCG TABLET PO SCH (07:30)
[2019-12-21 07:50] VITALS: BP 134/61
[2019-12-21] MEDS ORDERED: RALOXIFENE 60 MG TABLET PO SCH (09:00)
[2019-12-21] MEDS ORDERED: FUROSEMIDE 40 MG TABLET PO SCH (09:00)
[2019-12-21] MEDS ORDERED: RIVAROXABAN 20 MG TABLET PO SCH (09:00)
[2019-12-21] MEDS ORDERED: AMIODARONE 200 MG TABLET PO SCH (09:00)
[2019-12-21] MEDS ORDERED: DILTIAZEM 120 MG CAP.ER.24H PO SCH (09:00)
[2019-12-21] MEDS ORDERED: METOPROLOL SUCCINATE 25 MG TAB.ER.24H PO SCH (09:00)
[2019-12-21] MEDS ORDERED: POTASSIUM CHLORIDE 10 MEQ TABLET.ER PO SCH (09:00)
[2019-12-21] MEDS ORDERED: ACET325T26 PO (09:52)
== END 2019-12-21 12:41 | disposition home or self-care (01) | DRG 266 ==
LOC: ORIP 09:52 → EDSTATUS 11:00 → 5SO 17:02 → DCLOUNGE 12-21 12:33
PROVIDERS: ADMIT Internal Medicine Cardiovascular Disease; ATTEND Internal Medicine Cardiovascular Disease
PROC: B24BZZ4 Ultrasonography of Heart with Aorta, Transesophageal (ICD-10-PCS; 2019-12-20)
PROC: 02UG3JZ Supplement Mitral Valve with Synthetic Substitute, Percutaneous Approach (ICD-10-PCS; principal; 2019-12-20 11:00)
DX: I34.0 Nonrheumatic mitral (valve) insufficiency (principal); Z00.6 Encounter for examination for normal comparison and control in clinical research program; I50.33 Acute on chronic diastolic (congestive) heart failure; D68.69 Other thrombophilia; E03.9 Hypothyroidism, unspecified; E78.5 Hyperlipidemia, unspecified; I11.0 Hypertensive heart disease with heart failure; I48.0 Paroxysmal atrial fibrillation; Z88.8 Allergy status to other drugs, medicaments and biological substances
CPT/HCPCS: 33418; 36415; 76937; 80048; 83880; 85025; 85347; 85610; 86850; 86900; 93005; 93306; 93312; 93321; 93325; 93355; C1760; C1766; C1893; C1894; G0378; J0690; J2704; J3010; C1769; J0330; U0001-CS

== ENCOUNTER 2019-12-22 12:02 | Outpatient (CLI) | payer MEDICARE ==
[~2019-12-22 12:02] MED LIST changes: +ACET325T26 PO
[2019-12-22 12:32] LABS: MEAN CORPUSCULAR HEMOGLOBIN 32.3 pg (27.0-34.8); MEAN CORPUSCULAR HGB CONC 32.4 g/dL (32.4-35.8); MEAN PLATELET VOLUME 9.2 fL (7.4-10.4); PLATELET COUNT 330 x10^3/uL (130-400); RED BLOOD COUNT 3.68 x10^6/uL (3.82-5.3); RED CELL DISTRIBUTION WIDTH 23.4 % (9.6-15.2)
[2019-12-22 12:48] LABS: MD YES
[2019-12-22 12:51] LABS: BASOS% (MANUAL) 1 % (0-1); LYMPH#(MANUAL) 2.35 x10^3/uL (1-3.4); LYMPHS% (MANUAL) 24 % (22-44); MONOS#(MANUAL) 0.39 x10^3/uL (0.3-2.7); MONOS% (MANUAL) 4 % (2-9); REACTIVE LYMPHS % (MANUAL) 2 % (0-0); SEG#(MANUAL) 6.76 x10^3/uL (1.8-6.8); SEGS% (MANUAL) 69 % (42-75)
[2019-12-22 12:52] LABS: <PLATELET ESTIMATE> DECREASED; <PLT MORPHOLOGY> NORMAL PLT MORPH; ANISOCYTOSIS 1+; TARGET CELLS 1+
== END 2019-12-22 23:59 | disposition home or self-care (01) ==
LOC: RAD 12:02
PROVIDERS: ATTEND Physician Assistant Medical
DX: M79.81 Nontraumatic hematoma of soft tissue (principal); C25.9 Malignant neoplasm of pancreas, unspecified; B02.9 Zoster without complications; D48.5 Neoplasm of uncertain behavior of skin; D68.69 Other thrombophilia; E03.9 Hypothyroidism, unspecified; E44.0 Moderate protein-calorie malnutrition; E55.9 Vitamin D deficiency, unspecified; E78.00 Pure hypercholesterolemia, unspecified; E78.5 Hyperlipidemia, unspecified; F41.9 Anxiety disorder, unspecified; Z79.899 Other long term (current) drug therapy
CPT/HCPCS: 36415; 85025; 93926; 99281

== ENCOUNTER 2019-12-22 13:09 | Emergency (ER) | payer MEDICARE ==
[~2019-12-22] VITALS: Ht 162.6 cm; Wt 46.4 kg
[2019-12-22 13:12] VITALS: BP 121/65
--- NOTE | 2019-12-22 13:45 | NUR ---
CALL LIGHT WITHIN REACH, WARM BLANKET PROVIDED. ERP AWAITING CALL FROM CARDIOLOGY.
== END 2019-12-22 14:30 | disposition home or self-care (01) ==
LOC: ED 14:26
DX: R60.9 Edema, unspecified (principal); I11.0 Hypertensive heart disease with heart failure; I50.9 Heart failure, unspecified; I48.91 Unspecified atrial fibrillation; Z85.07 Personal history of malignant neoplasm of pancreas
CPT/HCPCS: 99281

== ENCOUNTER → 2020-01-19 | Outpatient (CLI) | payer MEDICARE | END | disposition home or self-care (01) | LOC: CFH 09:48 | PROVIDERS: ATTEND Internal Medicine Cardiovascular Disease | DX: Z01.810 Encounter for preprocedural cardiovascular examination (principal); I65.29 Occlusion and stenosis of unspecified carotid artery; I48.91 Unspecified atrial fibrillation; I08.8 Other rheumatic multiple valve diseases | CPT/HCPCS: 93306 ==

== ENCOUNTER → 2020-03-08 | Outpatient (CLI) | payer MEDICARE ==
[~2020-03-08] MED LIST changes: +OMNIPAQUE 350 MG/ML, 100ML BOTTLE ONE
== END | disposition home or self-care (01) ==
LOC: CFH 12:59
PROVIDERS: ATTEND Specialist
DX: C25.1 Malignant neoplasm of body of pancreas (principal); J90 Pleural effusion, not elsewhere classified; E04.1 Nontoxic single thyroid nodule; J98.11 Atelectasis; R91.1 Solitary pulmonary nodule; N28.1 Cyst of kidney, acquired; N28.89 Other specified disorders of kidney and ureter
CPT/HCPCS: 71260; 74160; Q9967

== ENCOUNTER → 2020-03-23 | Outpatient (CLI) | payer MEDICARE ==
[~2020-03-23] MED LIST changes: -OMNIPAQUE 350 MG/ML, 100ML BOTTLE ONE
== END | disposition home or self-care (01) ==
LOC: STAR 11:19
PROVIDERS: ATTEND Specialist
DX: Z01.818 Encounter for other preprocedural examination (principal); C25.1 Malignant neoplasm of body of pancreas; R94.31 Abnormal electrocardiogram [ECG] [EKG]; I51.7 Cardiomegaly
CPT/HCPCS: 93005

== ENCOUNTER → 2020-06-25 | Outpatient (CLI) | payer MEDICARE ==
[~2020-06-25] MED LIST changes: +OMNIPAQUE 350 MG/ML, 100ML BOTTLE ONE
== END | disposition home or self-care (01) ==
LOC: CFH 12:57
PROVIDERS: ATTEND Specialist
DX: C25.1 Malignant neoplasm of body of pancreas (principal); J90 Pleural effusion, not elsewhere classified; J98.11 Atelectasis; R91.1 Solitary pulmonary nodule; E04.2 Nontoxic multinodular goiter
CPT/HCPCS: 71260; 74177; Q9967

== ENCOUNTER → 2020-07-12 | Outpatient (CLI) | payer MEDICARE ==
[~2020-07-12] MED LIST changes: +LIDOCAINE 1%, 10ML ONE; -OMNIPAQUE 350 MG/ML, 100ML BOTTLE ONE
== END | disposition home or self-care (01) ==
LOC: RAD 08:59
PROVIDERS: ATTEND Specialist
DX: Z51.11 Encounter for antineoplastic chemotherapy (principal); C25.1 Malignant neoplasm of body of pancreas; C79.89 Secondary malignant neoplasm of other specified sites; E03.9 Hypothyroidism, unspecified; I50.20 Unspecified systolic (congestive) heart failure; J90 Pleural effusion, not elsewhere classified; I34.0 Nonrheumatic mitral (valve) insufficiency; D64.9 Anemia, unspecified; G89.3 Neoplasm related pain (acute) (chronic); Z79.899 Other long term (current) drug therapy
CPT/HCPCS: 32555; 82945; 83615; 84157; 88112; 88305; 89051

== ENCOUNTER 2020-07-25 08:34 | Outpatient (CLI) | payer MEDICARE ==
[~2020-07-25 08:34] MED LIST changes: -LIDOCAINE 1%, 10ML ONE
[2020-08-27] MEDS ORDERED: POTA99TA3 PO (12:05)
[2020-08-27] MEDS ORDERED: Iron PO (12:05)
== END 2020-07-25 23:59 | disposition home or self-care (01) ==
LOC: CT 08:34 → CFH 23:59
PROVIDERS: ATTEND Internal Medicine Cardiovascular Disease
DX: J90 Pleural effusion, not elsewhere classified (principal); J98.11 Atelectasis; I48.0 Paroxysmal atrial fibrillation
CPT/HCPCS: 71046

== ENCOUNTER 2020-07-27 07:20 | Emergency (ER) | payer MEDICARE ==
[~2020-07-27] VITALS: Ht 162.6 cm; Wt 50.4 kg
--- NOTE | 2020-07-27 07:49 | NUR ---
PT C/O SOB X 1 WEEK THAT IS WOSENING EACH DAY. PT HAD RIGHT LUNG DRAINED 1 WEEKS AGO. PT WAS TOLD SHE HAD FLUID ON HER LEFT LUNG WELL. PT STATES SHE FEELS SHE CANT TAKE A DEEP BREATH OR PULL IN ENOUGH AIR. PT HAS PANCREATIC CANCER AND RECEIVES CHEMO EVERY THURSDAY AND IS ENDING HER 4TH MONTH OF CHEMO. PT HAS HAD HER RIGHT LUNG DRAINED TWICE AND LEFT LUNG ONCE.
--- NOTE | 2020-07-27 07:52 | NUR ---
PT HAS PORT ACCESS ON RIGHT SIDE OF CHEST.
[2020-07-27] MEDS ORDERED: SODIUM CHLORIDE FLUSH 10ML SYR IVF ONE (08:30)
[2020-07-27 08:47] LABS: BASOPHILS % (AUTO) 1 % (0-1); EOSINOPHILS % (AUTO) 2 % (1-7); LYMPHOCYTES % (AUTO) 27 % (22-44); MEAN CORPUSCULAR HEMOGLOBIN 31.8 pg (27.0-34.8); MEAN CORPUSCULAR HGB CONC 33.2 g/dL (32.4-35.8); MEAN PLATELET VOLUME 10.3 fL (7.4-10.4); MONOCYTES % (AUTO) 2 % (2-9); NEUTROPHILS % (AUTO) 68 % (42-75); PLATELET COUNT 672 x10^3/uL (130-400); RED BLOOD COUNT 3.75 x10^6/uL (3.82-5.3); RED CELL DISTRIBUTION WIDTH 17.5 % (9.6-15.2)
[2020-07-27 09:02] LABS: CHLORIDE 104 mmol/L (98-107)
[2020-07-27 09:04] LABS: ALBUMIN 3.4 g/dL (3.4-5.0); ANION GAP 9 mmol/L (5-15); CALCIUM 8.9 mg/dL (8.5-10.1)
[2020-07-27 09:06] LABS: CREATININE 1.16 mg/dL (0.55-1.02)
[2020-07-27 09:17] LABS: MD SCAN
[2020-07-27] MEDS ORDERED: LIDOCAINE 1%, 10ML ONE (10:12)
--- NOTE | 2020-07-27 10:17 | NUR ---
PT OFF THE FLOOR TO IR
[2020-07-27 10:57] VITALS: BP 146/62
--- NOTE | 2020-07-27 10:58 | NUR ---
PT BACK IN ROOM FROM IR. PT STATES SHE FEELS A LOT BETTER AND SHE CAN BREATH BETTER.
--- NOTE | 2020-07-27 12:32 | NUR ---
WENT TO ROOM TO DISCHARGE PT AND ROOM WAS EMPTY. CONFIRMED WITH REGISTRATION THAT PATIENT AND SPOUSE AMBULATED TO DC DESK, COMPLETED REGISTRATION, AND AMBULATED OUT THE ER. ER DRAINAGE INSPECTOR ADVISED AND PT PACKET PLACED IN DISCHARGE BASKET.
== END 2020-07-27 12:36 | disposition home or self-care (01) ==
LOC: ED 09:31
DX: J91.0 Malignant pleural effusion (principal); R07.89 Other chest pain; R06.02 Shortness of breath; R06.00 Dyspnea, unspecified; I11.0 Hypertensive heart disease with heart failure; I50.9 Heart failure, unspecified; I48.91 Unspecified atrial fibrillation; Z88.9 Allergy status to unspecified drugs, medicaments and biological substances; Z85.9 Personal history of malignant neoplasm, unspecified; Z86.39 Personal history of other endocrine, nutritional and metabolic disease
CPT/HCPCS: 32555; 36415; 71045; 80048; 82040; 85025; 99285; J3490

== ENCOUNTER 2020-07-30 10:07 | Outpatient (CLI) | payer MEDICARE ==
[2020-07-30] MEDS ORDERED: LIDOCAINE 1%, 10ML ONE (10:13)
== END 2020-07-30 23:59 | disposition home or self-care (01) ==
LOC: RAD 10:07
PROVIDERS: ATTEND Internal Medicine Cardiovascular Disease
DX: J90 Pleural effusion, not elsewhere classified (principal); C25.7 Malignant neoplasm of other parts of pancreas; Z88.8 Allergy status to other drugs, medicaments and biological substances; Z79.899 Other long term (current) drug therapy; Z82.49 Family history of ischemic heart disease and other diseases of the circulatory system
CPT/HCPCS: 32555

== ENCOUNTER 2020-08-15 14:09 | Outpatient (CLI) | payer MEDICARE ==
[2020-08-15] MEDS ORDERED: LIDOCAINE 1%, 10ML ONE (14:39)
== END 2020-08-15 23:59 | disposition home or self-care (01) ==
LOC: RAD 14:09
PROVIDERS: ATTEND Internal Medicine Cardiovascular Disease
DX: J90 Pleural effusion, not elsewhere classified (principal)
CPT/HCPCS: 32555; 83615; 84157; 88112; 88305

== ENCOUNTER 2020-08-20 11:09 | Emergency (ER) | payer MEDICARE ==
[~2020-08-20] VITALS: Ht 162.6 cm; Wt 47.0 kg
--- NOTE | 2020-08-20 11:47 | NUR ---
First contact with pt. Pt reports she has been requiring frequent thoracenteses to drain fluid from both lungs. Pt reports her last thoracentesis was thursday. Pt reports "I had two good days and then I started feeling short of breath and weak again starting Thursday." Pt speaking in short 3-4 word sentences. Pt denies pain, just reports feeling weak. Pt placed in gown, positioned for comfrot in bed with warm blanket. Continuous heart, oxygen and BP Monitors applied, all safety measures observed. Joelle BANKS at bedside to evaluate pt.
[2020-08-20] MEDS ORDERED: ACETAMINOPHEN 325 MG TABLET ONE (11:59)
[2020-08-20] MEDS ORDERED: ACETAMINOPHEN 325 MG TABLET PO ONE (12:00)
[2020-08-20] MEDS ORDERED: FURO20TA3 PO (12:14)
[2020-08-20] MEDS ORDERED: AMIO100T4 PO (12:14)
[2020-08-20] MEDS ORDERED: ATOR40TA PO (12:14)
[2020-08-20 12:25] LABS: BASOPHILS % (AUTO) 1 % (0-1); EOSINOPHILS % (AUTO) 1 % (1-7); LYMPHOCYTES % (AUTO) 12 % (22-44); MEAN CORPUSCULAR HEMOGLOBIN 30.6 pg (27.0-34.8); MEAN CORPUSCULAR HGB CONC 32.7 g/dL (32.4-35.8); MONOCYTES % (AUTO) 11 % (2-9); NEUTROPHILS % (AUTO) 75 % (42-75); PLATELET COUNT 703 x10^3/uL (130-400); RED BLOOD COUNT 3.78 x10^6/uL (3.82-5.3); RED CELL DISTRIBUTION WIDTH 17.8 % (9.6-15.2)
[2020-08-20 12:37] LABS: ALBUMIN 2.9 g/dL (3.4-5.0); ANION GAP 9 mmol/L (5-15); CALCIUM 9.3 mg/dL (8.5-10.1); CHLORIDE 101 mmol/L (98-107); CREATININE 1.36 mg/dL (0.55-1.02)
--- NOTE | 2020-08-20 12:41 | NUR ---
Pt ambulatory to bathroom and back to bed with steady gait, she reports "It's harder to breathe when I'm standing up." Pt ambulatory back to bed and positioned for comfort. SPO2 monitor reattached and showed RA sat 83%. Pt placed on 2L O2 via NC with improvement to 97%. Pt denies pain, denies other needs.
[2020-08-20 12:46] LABS: MD SCAN
--- NOTE | 2020-08-20 13:22 | NUR ---
BREAK RN FOR PRIMARY RN ISABELLA. RECEIVED REPORT, CARE ASSUMED FOR BREAK. PT RESTING COMFORTABLY. VSS. PULSE OX 96% 2L NC O2. PT AWAITING CTA, TO PLACE IV FOR EXAM AND CALL CT WHEN PT READY. CALL LIGHT IN REACH. FALL PRECAUTIONS IN PLACE.
--- NOTE | 2020-08-20 13:49 | NUR ---
REPORT AND TRANSFER OF CARE BACK TO PRIMARY RN ISABELLA AT THIS TIME. IV PLACED. CT CALLED AND NOTIFIED PT READY FOR EXAM.
[2020-08-20 14:20] VITALS: BP 127/60
--- NOTE | 2020-08-20 14:20 | NUR ---
Pt back from CT, resting in bed, NADN, denies needs.
[2020-08-20] MEDS ORDERED: OMNIPAQUE 350 MG/ML, 75ML BOTTLE ONE (14:25)
[2020-08-20] MEDS ORDERED: LIDOCAINE 1%, 10ML ONE (15:12)
--- NOTE | 2020-08-20 15:19 | NUR ---
Pt to IR for thoracentesis at this time. Pt resting in [facility].
[2020-08-20] MEDS ORDERED: FUROSEMIDE 20 MG/2 ML IV ONE (15:30)
--- NOTE | 2020-08-20 16:04 | NUR ---
Pt back from IR. Pt reports she is feeling better, more able to get a breath. Pt ambulatory to bathroom and back to bed with steady gait, pt denies SOB with ambulation. Pt's SPO2 90% on return to bed. Pt positioned for comfort in bed, all monitors reapplied, all safety measures observed. Pt denies other needs at this time.
== END 2020-08-20 16:32 | disposition home or self-care (01) ==
LOC: ED 13:24
DX: J90 Pleural effusion, not elsewhere classified (principal); R06.00 Dyspnea, unspecified; I11.0 Hypertensive heart disease with heart failure; I50.9 Heart failure, unspecified; Z85.07 Personal history of malignant neoplasm of pancreas; I48.91 Unspecified atrial fibrillation
CPT/HCPCS: 32555; 36415; 71045; 71275; 80048; 82040; 83605; 83880; 85025; 87040; 93005; 99285; J3490; Q9967

== ENCOUNTER 2020-08-25 16:38 | Emergency (ER) | payer MEDICARE ==
[~2020-08-25] VITALS: Ht 162.6 cm; Wt 46.0 kg
[~2020-08-25 16:38] MED LIST changes: +AMIO100T4 PO; +ATOR40TA PO
[2020-08-25] MEDS ORDERED: SODIUM CHLORIDE FLUSH 10ML SYR IVF ONE (17:30)
--- NOTE | 2020-08-25 17:36 | NUR ---
placed calloway needle. streile dress flushes with blood return
[2020-08-25 17:42] LABS: MEAN CORPUSCULAR HEMOGLOBIN 30.4 pg (27.0-34.8); MEAN CORPUSCULAR HGB CONC 32.8 g/dL (32.4-35.8); MEAN PLATELET VOLUME 9.6 fL (7.4-10.4); PLATELET COUNT 833 x10^3/uL (130-400); RED BLOOD COUNT 3.36 x10^6/uL (3.82-5.3); RED CELL DISTRIBUTION WIDTH 17.8 % (9.6-15.2)
[2020-08-25 17:54] LABS: ALBUMIN 2.9 g/dL (3.4-5.0); ANION GAP 8 mmol/L (5-15); CALCIUM 8.7 mg/dL (8.5-10.1); CHLORIDE 102 mmol/L (98-107)
[2020-08-25 17:58] LABS: ALANINE AMINOTRANSFERASE 152 U/L (12-78); ALKALINE PHOSPHATASE 109 U/L (45-117); BILIRUBIN,TOTAL 0.3 mg/dL (0.2-1.0); CREATININE 1.78 mg/dL (0.55-1.02); TOTAL PROTEIN 6.1 g/dL (6.4-8.2)
--- NOTE | 2020-08-25 18:10 | NUR ---
MD Burnett back to bedside to update pt on POC.
[2020-08-25 18:18] LABS: MD YES
[2020-08-25 18:24] LABS: BASOS#(MANUAL) 0.15 x10^3/uL (0-0.1); BASOS% (MANUAL) 2 % (0-1); EOS#(MANUAL) 0.15 x10^3/uL (0.0-0.4); EOS% (MANUAL) 2 % (1-7); LYMPH#(MANUAL) 0.95 x10^3/uL (1-3.4); LYMPHS% (MANUAL) 13 % (22-44); METAMYELOCYTES# (MANUAL) 0.07 x10^3/uL (0-0); METAMYELOCYTES% (MANUAL) 1 % (0-1); MONOS#(MANUAL) 0.15 x10^3/uL (0.3-2.7); MONOS% (MANUAL) 2 % (2-9); MYELOCYTES# (MANUAL) 0.07 x10^3/uL (0-0); MYELOCYTES% (MANUAL) 1 % (0-0); SEG#(MANUAL) 5.77 x10^3/uL (1.8-6.8); SEGS% (MANUAL) 79 % (42-75)
[2020-08-25 18:25] LABS: ANISOCYTOSIS 1+
[2020-08-25 18:27] LABS: ECHINOCYTES 1+; POLYCHROMASIA 1+
[2020-08-25 18:28] LABS: SCHISTOCYTES 1+; TARGET CELLS 1+
[2020-08-25 18:29] LABS: <PLATELET ESTIMATE> INCREASED
[2020-08-25 18:30] LABS: LARGE PLATELETS 1+
--- NOTE | 2020-08-25 18:39 | NUR ---
bedside report from nikita rn, pt care transferred at this time. pt resting on della, johnna, no change in condition, bed in lowest, rails engaged, call light on lap, [facility].
--- NOTE | 2020-08-25 18:40 | NUR ---
Pt ambulatory to bathroom, steady gait.
[2020-08-25 19:18] VITALS: BP 130/55
--- NOTE | 2020-08-25 19:19 | NUR ---
Patient given discharge instructions and they have confirmed that they understand the instructions. Patient ambulatory with steady gait. nad, denies additional questions or needs at this time. no personal belongings left in room after dc
[2020-08-27] MEDS ORDERED: Iron PO (12:05)
[2020-08-27] MEDS ORDERED: POTA99TA3 PO (12:05)
== END 2020-08-25 19:30 | disposition home or self-care (01) ==
LOC: ED 17:06
DX: R06.00 Dyspnea, unspecified (principal); I13.0 Hypertensive heart and chronic kidney disease with heart failure and stage 1 through stage 4 chronic kidney disease, or unspecified chronic kidney disease; N18.30 Chronic kidney disease, stage 3 unspecified; I50.9 Heart failure, unspecified; R94.31 Abnormal electrocardiogram [ECG] [EKG]; I48.91 Unspecified atrial fibrillation; M81.0 Age-related osteoporosis without current pathological fracture; Z85.07 Personal history of malignant neoplasm of pancreas
CPT/HCPCS: 36415; 71045; 80053; 85025; 93005; 99285

== ENCOUNTER 2020-08-29 05:59 | Observation (INO) | payer MEDICARE ==
[2020-08-27 12:48] LABS: ALBUMIN 3.1 g/dL (3.4-5.0); ANION GAP 6 mmol/L (5-15); CALCIUM 9.4 mg/dL (8.5-10.1); CHLORIDE 102 mmol/L (98-107)
[2020-08-27 12:52] LABS: ALANINE AMINOTRANSFERASE 183 U/L (12-78); ALKALINE PHOSPHATASE 113 U/L (45-117); BILIRUBIN,TOTAL 0.5 mg/dL (0.2-1.0); CREATININE 1.86 mg/dL (0.55-1.02); TOTAL PROTEIN 6.6 g/dL (6.4-8.2)
[~2020-08-29] VITALS: Ht 162.6 cm; Wt 48.0 kg
[~2020-08-29 05:59] MED LIST changes: +Iron PO; +POTA99TA3 PO
[2020-08-29 06:42] VITALS: BP 138/80
[2020-08-29] MEDS ORDERED: BUPIVACAINE/PF 0.5% ONE (06:58)
[2020-08-29] MEDS ORDERED: EPINEPHRINE 1 MG/ML, 1ML ONE (06:59)
[2020-08-29] MEDS ORDERED: CHLORHEXIDINE 15 ML UDC MM ONE (07:00)
[2020-08-29] MEDS ORDERED: LACTATED RINGERS 1,000 ML IV SCH ×2 (07:00→08:30)
[2020-08-29] MEDS ORDERED: FENTANYL PF 100 MCG/2ML ONE ×2 (07:13→08:33)
[2020-08-29] MEDS ORDERED: PROPOFOL 10 MG/ML, 20ML ONE (07:29)
[2020-08-29] MEDS ORDERED: LABETALOL 5MG/ML, 20ML IV PRN (07:30)
[2020-08-29] MEDS ORDERED: HYDROmorphone 1 MG/ML, 1ML INJ IVPush PRN (07:30)
[2020-08-29] MEDS ORDERED: ONDANSETRON 2MG/ML, 2ML IVPush PRN ×2 (07:30→08:30)
[2020-08-29] MEDS ORDERED: hydrALAzine 20 MG/ML, 1ML IV PRN (07:30)
[2020-08-29] MEDS ORDERED: OXYcodone 5 MG/5 ML ORAL.SOL UDC PO PRN (07:30)
[2020-08-29] MEDS ORDERED: EPHEDRINE 50 MG/ML, 1ML IVPush PRN (07:30)
[2020-08-29] MEDS ORDERED: PROMETHAZINE 25 MG/ML, 1ML IVPush PRN (07:30)
[2020-08-29] MEDS ORDERED: ACETAMINOPHEN 325 MG TABLET PO PRN (07:30)
[2020-08-29] MEDS ORDERED: CEFAZOLIN 1,000 MG ONE (07:30)
[2020-08-29] MEDS ORDERED: BUPIVACAINE/PF-EPI 0.5% 1:200K INFIL ONE (07:49)
[2020-08-29] MEDS ORDERED: HYDROcodone/APAP 5/325 TABLET PO PRN (08:30)
[2020-08-29] MEDS ORDERED: morphine SULFATE 10 MG/ML, 1ML IVPush PRN (08:30)
[2020-08-29] MEDS ORDERED: OXYcodone 5 MG/5 ML ORAL.SOL UDC ONE (08:33)
[2020-08-29] MEDS ORDERED: ACETAMINOPHEN 650 MG/20.3 ML UDC ONE (08:33)
[2020-08-29] MEDS ORDERED: HYDR-1067 PO (08:38)
[2020-08-29] MEDS: FENTANYL PF 100 MCG/2ML IV PRN ×2 (08:40→09:10)
== END 2020-08-29 13:30 | disposition home or self-care (01) ==
LOC: OUT 05:59 → ORIP 08:27
PROVIDERS: ADMIT Thoracic Surgery (Cardiothoracic Vascular Surgery); ATTEND Thoracic Surgery (Cardiothoracic Vascular Surgery)
DX: J90 Pleural effusion, not elsewhere classified (principal); Z20.822 Contact with and (suspected) exposure to COVID-19; C25.9 Malignant neoplasm of pancreas, unspecified; I48.0 Paroxysmal atrial fibrillation; E78.5 Hyperlipidemia, unspecified; I11.0 Hypertensive heart disease with heart failure; I50.33 Acute on chronic diastolic (congestive) heart failure; I34.1 Nonrheumatic mitral (valve) prolapse; I34.0 Nonrheumatic mitral (valve) insufficiency; E78.00 Pure hypercholesterolemia, unspecified; E03.9 Hypothyroidism, unspecified; Z79.01 Long term (current) use of anticoagulants; Z51.81 Encounter for therapeutic drug level monitoring; Z79.899 Other long term (current) drug therapy; Z92.21 Personal history of antineoplastic chemotherapy
CPT/HCPCS: 32550; 36415; 71045; 80053; 88112; 88305; 93005; C1729; G0378; J0171; J0690; J2405; J2704; J3010; J7120; S0020; U0003

== ENCOUNTER → 2020-10-31 | Outpatient (CLI) | payer MEDICARE ==
[~2020-10-31] MED LIST changes: +HYDR-2214 PO
== END | disposition home or self-care (01) ==
LOC: PETCFH 12:25
PROVIDERS: ATTEND Specialist
DX: C25.1 Malignant neoplasm of body of pancreas (principal); J90 Pleural effusion, not elsewhere classified; J98.11 Atelectasis; R91.8 Other nonspecific abnormal finding of lung field
CPT/HCPCS: 78815; A9552

== ENCOUNTER → 2020-12-21 | Outpatient (CLI) | payer MEDICARE | END | disposition home or self-care (01) | LOC: CFH 14:50 | PROVIDERS: ATTEND Internal Medicine Cardiovascular Disease | DX: Z01.810 Encounter for preprocedural cardiovascular examination (principal); I08.1 Rheumatic disorders of both mitral and tricuspid valves; R06.02 Shortness of breath; I65.29 Occlusion and stenosis of unspecified carotid artery | CPT/HCPCS: 93306 ==

== ENCOUNTER → 2021-01-31 | Outpatient (CLI) | payer MEDICARE | END | disposition home or self-care (01) | LOC: RAD 08:37 | PROVIDERS: ATTEND Specialist | DX: C25.1 Malignant neoplasm of body of pancreas (principal); J90 Pleural effusion, not elsewhere classified; J84.10 Pulmonary fibrosis, unspecified; R91.8 Other nonspecific abnormal finding of lung field | CPT/HCPCS: 71250; 74176 ==

== ENCOUNTER 2021-03-26 11:13 | Outpatient (CLI) | payer MEDICARE ==
[~2021-03-26 11:13] MED LIST changes: +POTA-143 PO; -POTA20TA6 PO
== END 2021-03-26 23:59 | disposition home or self-care (01) ==
LOC: CFH 11:13
PROVIDERS: ATTEND Nurse Practitioner Family
DX: J90 Pleural effusion, not elsewhere classified (principal); R06.02 Shortness of breath
CPT/HCPCS: 71046

== ENCOUNTER → 2021-03-29 | Outpatient (CLI) | payer MEDICARE ==
[~2021-03-29] MED LIST changes: +LIDOCAINE 1%, 10ML ONE
== END | disposition home or self-care (01) ==
LOC: RAD 14:03
PROVIDERS: ATTEND Thoracic Surgery (Cardiothoracic Vascular Surgery)
DX: J90 Pleural effusion, not elsewhere classified (principal); I11.0 Hypertensive heart disease with heart failure; I50.9 Heart failure, unspecified; I48.91 Unspecified atrial fibrillation; M81.0 Age-related osteoporosis without current pathological fracture; E03.9 Hypothyroidism, unspecified; Z91.018 Allergy to other foods; Z88.8 Allergy status to other drugs, medicaments and biological substances; Z79.899 Other long term (current) drug therapy; Z79.01 Long term (current) use of anticoagulants; Z90.49 Acquired absence of other specified parts of digestive tract; Z98.890 Other specified postprocedural states; Z85.07 Personal history of malignant neoplasm of pancreas
CPT/HCPCS: 32555; 88112; 88305

== ENCOUNTER → 2021-04-04 | Outpatient (CLI) | payer MEDICARE | END | disposition home or self-care (01) | LOC: RAD 14:25 | PROVIDERS: ATTEND Thoracic Surgery (Cardiothoracic Vascular Surgery) | DX: J90 Pleural effusion, not elsewhere classified (principal) ==